=== PATIENT | female | born 1950 | race Caucasian/White ===

== ENCOUNTER 2022-02-04 09:16 | Emergency (ER) | payer OTHER, MEDICARE ==
--- NOTE | 2022-02-04 09:22 | ED Physician Documentation ---
PD HPI CHEST PAIN - Stated complaint Stated Complaint: CHEST PRESSURE/THROAT PX - History obtained from History obtained from: Patient - History of Present Illness Timing - onset: How many days ago (2-3 days of cough, dyspnea, and chest tightn ess. No fever, but does have some aching feeling and mild sputum production. and family members with coughing as well.) Timing - onset during: Light activity Timing - duration: Days Timing - details: Gradual onset, Still present Quality: Pressure, Tightness Location: Substernal Radiation: Back. No: Neck, Abdominal Improved by: Other (albuterol inhaler) Worsened by: Exertion, Other (cough) Associated symptoms: Shortness of air, Cough. No: Nausea, General Weakness, Palpitations Similar symptoms before: Diagnosis (feels similar to prior bronchitis episodes.) Recently seen: Not recently seen Review of Systems Constitutional: reports: Chills, Myalgias. denies: Fever Nose: reports: Rhinorrhea / runny nose. denies: Congestion Cardiac: reports: Chest pain / pressure. denies: Palpitations, Pedal edema, Calf pain Respiratory: reports: Dyspnea, Cough, Wheezing. denies: Hemoptysis Skin: denies: Rash, Lesions Musculoskeletal: reports: Extremity swelling (mild) PD PAST MEDICAL HISTORY - Present Medications Home Medications: Ambulatory Orders Medication Instructions Recorded Confirmed Albuterol Sulf [Ventolin Hfa 1 - 2 puffs INH Q4HR PRN #1 each 02/04/22 Inhaler] Amoxicillin 500 mg PO TID #18 cap 02/04/22 dexAMETHasone [Decadron] 4 mg PO DAILY #5 tablet 02/04/22 - Allergies Allergies/Adverse Reactions: Allergies Allergy/AdvReac Type Severity Reaction Status Date / Time egg Allergy Nausea Verified 02/04/22 09:27 PD ED PE NORMAL - Vitals Vital signs reviewed: Yes - General General: Alert and oriented X 3, No acute distress, Well developed/nourished - HEENT HEENT: Pharynx benign - Neck Neck: Supple, no meningeal sign, No adenopathy - Cardiac Cardiac: RRR, No murmur - Respiratory Respiratory: No respiratory distress. No: Clear bilaterally (wheezing expiratory diffusely. Congested/wet cough sound centrally. ) - Derm Derm: Normal color, Warm and dry - Extremities Extremities: No edema, No calf tenderness / cord - Neuro Neuro: Alert and oriented X 3, No motor deficit, Normal speech Results - Vitals Vitals: Vital Signs - 24 hr 02/04/22 09:23 Temperature 37.5 C Heart Rate 78 Respiratory 16 Rate Blood Pressure 129/73 O2 Saturation 95 Oxygen O2 Source Room air - EKG (time done) 09:29 Rate: Rate (enter#) (67) Rhythm: NSR [place]: Normal Intervals: Normal [place] QRS: Normal Ischemia: Normal ST segments. No: ST elevation c/w ischemia, ST depression Compare to prior EKG: Unchanged from prior EKG Departure - Departure Disposition: 01 Home, Self Care Clinical Impression: Lower respiratory infection (e.g., bronchitis, pneumonia, pneumonitis, pulmonitis) Condition: Stable Record reviewed to determine appropriate education?: Yes Prescriptions: Albuterol Sulf [Ventolin Hfa Inhaler] 1 - 2 puffs INH Q4HR PRN #1 each PRN Reason: Shortness Of Air/Wheezing Amoxicillin 500 mg PO TID #18 cap dexAMETHasone [Decadron] 4 mg PO DAILY #5 tablet Comments: Your symptoms do sound like bronchitis. Your EKG is normal. We can treat this as bronchitis symptoms with the albuterol inhaler. I did write a prescription for refill for you as well. Continue 2 to 3 puffs 4 times daily for the next several days to week. Additionally we can add Decadron steroid anti-inflammatory to help reduce bronchial inflammation. Add cough medicine or such if needed. This may be bacterial though often these can be viral. It can be hard to tell also an antibiotic of amoxicillin 3 times daily for the next 6 days can be used as well. The this antibiotic is the more current recommendation for bronchitis as resistance to Zithromax has increased quite a bit. I transmitted your prescriptions to [facility] pharmacy in [place]. Discharge Date/Time: 02/04/22 10:06
[2022-02-04 09:27] VITALS: BP 129/73
[2022-02-04] MEDS ORDERED: DEXAMETHASONE 10 MG/ML VIAL PO STA (09:44)
[2022-02-04] MEDS ORDERED: CHERRY SYRUP 10 ML UDC PO ONE (09:44)
[2022-02-04] MEDS ORDERED: AMOXICILLIN 250 MG CAPSULE PO STA (09:44)
[2022-02-04] MEDS ORDERED: BENZONATATE 100 MG CAPSULE PO STA (09:44)
== END 2022-02-04 10:06 | disposition home or self-care (01) ==
LOC: ED 09:16
DX: J22 Unspecified acute lower respiratory infection (principal)
CPT/HCPCS: 93005; 99282; 99283; A9270